=== PATIENT | female | born 1940 | race Two or more races ===

== ENCOUNTER 2016-04-28 21:50 | Inpatient (IN) | payer MEDICARE ==
[~2016-04-28] VITALS: Ht 154.9 cm; Wt 63.0 kg
[2016-04-28 23:00] VITALS: BP 145/81
[2016-04-28] MEDS ORDERED: MAG HYDROX/AL HYDROX/SIMETH 30 ML UDC PO PRN (23:30)
[2016-04-28] MEDS ORDERED: LORAZEPAM 0.5 MG TABLET PO PRN (23:30)
[2016-04-28] MEDS ORDERED: ACETAMINOPHEN 325 MG TABLET PO PRN (23:30)
[2016-04-28] MEDS ORDERED: MAGNESIUM HYDROXIDE 30 ML UDC PO PRN (23:30)
[2016-04-29] MEDS ORDERED: IBUP-1481 PO (00:01)
[2016-04-29 07:25] LABS: ALBUMIN 3.6 g/dL (3.4-5.0); BILIRUBIN,TOTAL 0.6 mg/dL (0.2-1.0); CALCIUM, SERUM 9.2 mg/dL (8.5-10.1); CREATININE 0.8 mg/dL (0.6-1.3); POTASSIUM 4.2 mmol/L (3.5-5.1); TOTAL PROTEIN, SERUM 6.9 g/dL (6.4-8.2)
[2016-04-29 08:00] VITALS: BP 137/80
[2016-04-29 16:12] VITALS: BP 121/71
[2016-04-29 18:34] LABS: KETONES,URINE NEGATIVE (NEGATIVE); LEUKOCYTE ESTERASE ,URINE TRACE (NEGATIVE); PH,URINE 5.5 (5.0-8.0)
[2016-04-29 19:12] LABS: ADD UA MICROSCOPIC YES
[2016-04-29 19:14] LABS: ADD URINE CULTURE NO; RBC,URINE NONE SEEN /HPF (0-2); WBC,URINE 0-2 /HPF (0-3)
[2016-04-29 20:01] VITALS: BP 163/83
[2016-04-29 20:31] VITALS: BP 139/71
[2016-04-29] MEDS: DIVALPROEX SODIUM 250 MG TABLET.DR PO SCH (20:49)
[2016-04-29] MEDS: OLANZAPINE 5 MG/TAB.RAPDIS PO SCH (21:11)
[2016-04-29] MEDS: TEMAZEPAM 7.5 MG CAPSULE PO PRN (21:41)
[2016-04-30 08:00] VITALS: BP 143/84
[2016-04-30] MEDS: DIVALPROEX SODIUM 250 MG TABLET.DR PO SCH ×3 (09:28→21:40)
[2016-04-30 16:00] VITALS: BP 139/85
[2016-04-30 20:11] VITALS: BP 154/87
[2016-04-30] MEDS: OLANZAPINE 5 MG/TAB.RAPDIS PO SCH (21:40)
[2016-05-01 08:00] VITALS: BP 144/87
[2016-05-01] MEDS: DIVALPROEX SODIUM 250 MG TABLET.DR PO SCH ×3 (09:28→20:10)
[2016-05-01 16:00] VITALS: BP 142/73
[2016-05-01 20:07] VITALS: BP 138/58
[2016-05-01] MEDS: OLANZAPINE 5 MG/TAB.RAPDIS PO SCH (21:06)
[2016-05-02 08:00] VITALS: BP 141/73
[2016-05-02] MEDS: DIVALPROEX SODIUM 250 MG TABLET.DR PO SCH ×3 (08:52→21:00)
[2016-05-02 16:00] VITALS: BP 148/80
[2016-05-02 20:00] VITALS: BP 136/73
[2016-05-02] MEDS: NITROFURANTOIN/NITROFURAN MAC 100 MG CAPSULE PO SCH (21:00)
[2016-05-02] MEDS: OLANZAPINE 5 MG/TAB.RAPDIS PO SCH (22:07)
[2016-05-02] MEDS: TEMAZEPAM 7.5 MG CAPSULE PO PRN (22:08)
[2016-05-03 08:00] VITALS: BP 147/85
[2016-05-03] MEDS: NITROFURANTOIN/NITROFURAN MAC 100 MG CAPSULE PO SCH ×2 (09:08→20:22)
[2016-05-03] MEDS: DIVALPROEX SODIUM 250 MG TABLET.DR PO SCH ×4 (09:08→21:16)
[2016-05-03 16:00] VITALS: BP 142/89
[2016-05-03 20:00] VITALS: BP 145/87
[2016-05-03] MEDS: OLANZAPINE 5 MG/TAB.RAPDIS PO SCH (22:07)
[2016-05-04 07:32] LABS: CHOLESTEROL 144 mg/dL (<200); HDL CHOLESTEROL 41 mg/dL (40-60); LDL 84 mg/dL (0-99); TRIGLYCERIDES 94 mg/dL (30-150)
[2016-05-04] MEDS: DIVALPROEX SODIUM 250 MG TABLET.DR PO SCH ×3 (08:29→20:03)
[2016-05-04] MEDS: NITROFURANTOIN/NITROFURAN MAC 100 MG CAPSULE PO SCH (08:29)
[2016-05-04 08:59] VITALS: BP 140/85
[2016-05-04 15:42] VITALS: BP 142/84
[2016-05-04 20:00] VITALS: BP 129/71
[2016-05-04] MEDS: OLANZAPINE 5 MG/TAB.RAPDIS PO SCH (21:06)
[2016-05-05 08:00] VITALS: BP 150/89
[2016-05-05] MEDS: DIVALPROEX SODIUM 250 MG TABLET.DR PO SCH ×3 (09:00→21:21)
[2016-05-05 16:24] VITALS: BP 131/75
[2016-05-05 20:00] VITALS: BP 131/68
[2016-05-05] MEDS ORDERED: OLANZAPINE 5 MG/TAB.RAPDIS PO SCH (22:00)
[2016-05-06 08:00] VITALS: BP 140/89
[2016-05-06] MEDS: DIVALPROEX SODIUM 250 MG TABLET.DR PO SCH (08:20)
== END 2016-05-06 13:50 | DRG 885 ==
LOC: GPS 22:36
PROVIDERS: ADMIT Psychiatry & Neurology Psychiatry; ATTEND Internal Medicine
DX: F20.0 Paranoid schizophrenia (principal); N39.0 Urinary tract infection, site not specified; M19.90 Unspecified osteoarthritis, unspecified site; F03.90 Unspecified dementia, unspecified severity, without behavioral disturbance, psychotic disturbance, mood disturbance, and anxiety; F10.21 Alcohol dependence, in remission
CPT/HCPCS: 36415; 80053-TC; 80061-TC; 80164-TC; 81000-TC; 87081-TC

== ENCOUNTER 2017-08-08 18:06 | Inpatient (IN) | payer MEDICARE, OTHER ==
[~2017-08-08] VITALS: Ht 157.5 cm; Wt 85.7 kg
[~2017-08-08 18:06] MED LIST: IBUP-1953 PO
[2017-08-08 18:53] LABS: BASOPHILS % (AUTO) 0.6 % (0.0-2.0); EOSINOPHILS % (AUTO) 1.1 % (0.0-6.0); HEMATOCRIT 39 % (33-45); HEMOGLOBIN 13.2 g/dL (11.5-14.8); LYMPHOCYTES # (AUTO) 1.5 /CMM (0.8-4.8); LYMPHOCYTES % (AUTO) 26.2 % (20.0-44.0); MEAN CORPUSCULAR HEMOGLOBIN 32 PG (26.0-33.0); MEAN CORPUSCULAR HGB CONC 34 g/dl (31.0-36.0); MEAN CORPUSCULAR VOLUME 93 fL (82-100); MONOCYTES # (AUTO) 0.5 /CMM (0.1-1.30); MONOCYTES % (AUTO) 9.1 % (2.0-12.0); NEUTROPHILS # (AUTO) 3.5 /CMM (1.8-8.9); PLATELET COUNT (AUTO) 170 /CMM (150-450); RDW COEFFICIENT OF VARIATION 13.6 (11.5-15.0); RED BLOOD CELL COUNT(AUTO) 4.17 MIL/uL (4.0-5.2); WHITE BLOOD COUNT (AUTO) 5.6 K/uL (4.3-11.0)
[2017-08-08 19:09] LABS: CALCIUM, SERUM 8.6 mg/dL (8.5-10.1); CARBON DIOXIDE 29 mmol/L (21-32); CHLORIDE 102 mmol/L (98-107); GLUCOSE 132 mg/dL (74-106); POTASSIUM 4.3 mmol/L (3.5-5.1); SODIUM SERUM 139 mmol/L (136-145); UREA NITROGEN, BLOOD 19 mg/dL (7-18)
[2017-08-08 19:17] LABS: TROPONIN I < 0.017 ng/mL (0.00-0.056)
[2017-08-08 19:26] LABS: INR 0.96 (0.87-1.13)
[2017-08-08 20:24] LABS: B-TYPE NATRIURETIC PEPTIDE 442 PG/ML (0-125)
[2017-08-08] MEDS ORDERED: MAGNESIUM HYDROXIDE 30 ML UDC PO PRN (21:00)
[2017-08-08] MEDS ORDERED: ACETAMINOPHEN 325 MG TABLET PO PRN (21:00)
[2017-08-08] MEDS ORDERED: HYDROCODONE/APAP 5/325MG 1 EACH TABLET PO PRN (21:00)
[2017-08-08] MEDS ORDERED: ONDANSETRON HCL/PF 4 MG/2 ML VIAL IVP PRN (21:00)
[2017-08-08] MEDS ORDERED: ZOLPIDEM TARTRATE 5 MG TABLET PO PRN (21:00)
[2017-08-08] MEDS ORDERED: Z GUARD REMEDY 2 OZ OINT TP PRN (21:00)
[2017-08-08] MEDS ORDERED: MAG HYDROX/AL HYDROX/SIMETH 30 ML UDC PO PRN (21:00)
[2017-08-08] MEDS ORDERED: FUROSEMIDE 40 MG/4 ML VIAL IV ONE (21:00)
[2017-08-08] MEDS ORDERED: METO-356 PO (21:03)
[2017-08-08] MEDS ORDERED: ACET-868 PO (21:03)
[2017-08-08] MEDS ORDERED: DOCU-141 PO (21:03)
[2017-08-08] MEDS ORDERED: MAGN400O21 PO (21:03)
[2017-08-08] MEDS ORDERED: DICL100G16 TP (21:03)
[2017-08-08] MEDS ORDERED: OLAN5TAB3 PO (21:03)
[2017-08-08] MEDS ORDERED: DIVA500T2 PO (21:03)
[2017-08-08] MEDS ORDERED: FUROSEMIDE 40 MG/4 ML VIAL ONE (21:05)
[2017-08-08 22:25] VITALS: BP 155/77
[2017-08-08 22:30] VITALS: BP 155/77
[2017-08-08] MEDS: ENOXAPARIN SODIUM 40 MG/0.4 ML DISP.SYRIN SQ SCH (23:53)
[2017-08-09 08:00] VITALS: BP 136/79
[2017-08-09] MEDS: FUROSEMIDE 40 MG/4 ML VIAL IV SCH ×2 (08:57→21:46)
[2017-08-09] MEDS ORDERED: ACETAMINOPHEN 325 MG TABLET PO PRN (10:00)
[2017-08-09] MEDS ORDERED: MAGNESIUM HYDROXIDE 30 ML UDC PO PRN (10:00)
[2017-08-09] MEDS: DOCUSATE SODIUM 100 MG CAPSULE PO SCH ×2 (10:00→17:14)
[2017-08-09] MEDS: METOPROLOL SUCCINATE 25 MG TAB.SR.24H PO SCH ×2 (10:01→23:08)
[2017-08-09] MEDS: MELOXICAM 7.5 MG TABLET PO SCH (10:01)
[2017-08-09] MEDS: DIVALPROEX SODIUM 250 MG TABLET.DR PO SCH ×3 (10:03→17:14)
[2017-08-09 11:10] LABS: BASOPHILS % (AUTO) 0.5 % (0.0-2.0); EOSINOPHILS % (AUTO) 0.8 % (0.0-6.0); HEMATOCRIT 38 % (33-45); HEMOGLOBIN 13.1 g/dL (11.5-14.8); LYMPHOCYTES # (AUTO) 1.1 /CMM (0.8-4.8); LYMPHOCYTES % (AUTO) 25.4 % (20.0-44.0); MEAN CORPUSCULAR HEMOGLOBIN 32 PG (26.0-33.0); MEAN CORPUSCULAR HGB CONC 34 g/dl (31.0-36.0); MEAN CORPUSCULAR VOLUME 93 fL (82-100); MONOCYTES # (AUTO) 0.3 /CMM (0.1-1.30); MONOCYTES % (AUTO) 7.6 % (2.0-12.0); NEUTROPHILS # (AUTO) 2.9 /CMM (1.8-8.9); NEUTROPHILS % (AUTO) 65.7 % (43.0-81.0); PLATELET COUNT (AUTO) 160 /CMM (150-450); RDW COEFFICIENT OF VARIATION 13.6 (11.5-15.0); WHITE BLOOD COUNT (AUTO) 4.5 K/uL (4.3-11.0)
[2017-08-09 11:28] LABS: CALCIUM, SERUM 8.8 mg/dL (8.5-10.1); CARBON DIOXIDE 32 mmol/L (21-32); CHLORIDE 102 mmol/L (98-107); CREATININE 0.9 mg/dL (0.6-1.3); GLUCOSE 206 mg/dL (74-106); MAGNESIUM 2.2 mg/dL (1.8-2.4); POTASSIUM 3.4 mmol/L (3.5-5.1); SODIUM SERUM 139 mmol/L (136-145); UREA NITROGEN, BLOOD 18 mg/dL (7-18)
[2017-08-09 11:40] LABS: CHOLESTEROL 182 mg/dL (<200); HDL CHOLESTEROL 40 mg/dL (40-60); LDL 115 mg/dL (0-99); THYROID STIMULATING HORMONE 6.263 uIU/mL (0.358-3.74); TRIGLYCERIDES 168 mg/dL (30-150)
[2017-08-09] MEDS ORDERED: POTASSIUM CHLORIDE 20 MEQ TAB.PRT.SR PO SCH (12:00)
[2017-08-09 16:00] VITALS: BP 131/73
[2017-08-09] MEDS: OLANZAPINE 5 MG TABLET PO SCH (17:14)
[2017-08-09] MEDS: BLOOD SUGAR DIAGNOSTIC 1 EACH STRIP IN SCH ×2 (17:53→21:51)
[2017-08-09] MEDS ORDERED: DEXTROSE 50%-WATER 50 ML DISP.SYRIN IV PRN (18:00)
[2017-08-09 20:00] VITALS: BP 130/72
[2017-08-09] MEDS: ENOXAPARIN SODIUM 40 MG/0.4 ML DISP.SYRIN SQ SCH (21:51)
[2017-08-09] MEDS: INSULIN REGULAR, HUMAN 100 UNIT/ML 3 ML VIAL SQ PRN (21:52)
[2017-08-10] MEDS: BLOOD SUGAR DIAGNOSTIC 1 EACH STRIP IN SCH ×4 (06:31→21:50)
[2017-08-10] MEDS: FUROSEMIDE 40 MG/4 ML VIAL IV SCH (08:15)
[2017-08-10] MEDS: DOCUSATE SODIUM 100 MG CAPSULE PO SCH ×2 (08:15→17:36)
[2017-08-10] MEDS: DIVALPROEX SODIUM 250 MG TABLET.DR PO SCH ×3 (08:15→17:36)
[2017-08-10] MEDS: MELOXICAM 7.5 MG TABLET PO SCH (08:15)
[2017-08-10] MEDS: METOPROLOL SUCCINATE 25 MG TAB.SR.24H PO SCH ×2 (08:15→21:49)
[2017-08-10 08:44] VITALS: BP 121/71
[2017-08-10 09:08] LABS: BASOPHILS # (AUTO) 0.1 /CMM (0.0-0.2); EOSINOPHILS % (AUTO) 1.6 % (0.0-6.0); HEMATOCRIT 42 % (33-45); HEMOGLOBIN 14.3 g/dL (11.5-14.8); LYMPHOCYTES # (AUTO) 1.5 /CMM (0.8-4.8); LYMPHOCYTES % (AUTO) 27.7 % (20.0-44.0); MEAN CORPUSCULAR HEMOGLOBIN 32 PG (26.0-33.0); MEAN CORPUSCULAR HGB CONC 34 g/dl (31.0-36.0); MEAN CORPUSCULAR VOLUME 93 fL (82-100); MONOCYTES # (AUTO) 0.3 /CMM (0.1-1.30); MONOCYTES % (AUTO) 6.1 % (2.0-12.0); NEUTROPHILS # (AUTO) 3.4 /CMM (1.8-8.9); NEUTROPHILS % (AUTO) 63.6 % (43.0-81.0); PLATELET COUNT (AUTO) 145 /CMM (150-450); RDW COEFFICIENT OF VARIATION 13.3 (11.5-15.0); RED BLOOD CELL COUNT(AUTO) 4.47 MIL/uL (4.0-5.2); WHITE BLOOD COUNT (AUTO) 5.3 K/uL (4.3-11.0)
[2017-08-10 09:49] LABS: CALCIUM, SERUM 8.9 mg/dL (8.5-10.1); CREATININE 0.9 mg/dL (0.6-1.3); GLUCOSE 160 mg/dL (74-106); UREA NITROGEN, BLOOD 26 mg/dL (7-18)
[2017-08-10 10:07] LABS: CARBON DIOXIDE 27 mmol/L (21-32); CHLORIDE 99 mmol/L (98-107); POTASSIUM 3.6 mmol/L (3.5-5.1); SODIUM SERUM 137 mmol/L (136-145)
[2017-08-10] MEDS: INSULIN REGULAR, HUMAN 100 UNIT/ML 3 ML VIAL SQ PRN ×3 (12:17→21:57)
[2017-08-10 15:48] VITALS: BP 119/65
[2017-08-10] MEDS: OLANZAPINE 5 MG TABLET PO SCH (17:36)
[2017-08-10 20:00] VITALS: BP 119/68
[2017-08-10] MEDS: ENOXAPARIN SODIUM 40 MG/0.4 ML DISP.SYRIN SQ SCH (21:50)
[2017-08-11] MEDS: INSULIN REGULAR, HUMAN 100 UNIT/ML 3 ML VIAL SQ PRN ×2 (06:49→21:41)
[2017-08-11] MEDS: BLOOD SUGAR DIAGNOSTIC 1 EACH STRIP IN SCH ×4 (06:49→21:42)
[2017-08-11 07:52] VITALS: BP 124/62
[2017-08-11 08:00] VITALS: BP 124/62
[2017-08-11] MEDS: DOCUSATE SODIUM 100 MG CAPSULE PO SCH ×2 (08:58→17:00)
[2017-08-11] MEDS: METOPROLOL SUCCINATE 25 MG TAB.SR.24H PO SCH ×2 (08:58→20:43)
[2017-08-11] MEDS: MELOXICAM 7.5 MG TABLET PO SCH (08:59)
[2017-08-11] MEDS: DIVALPROEX SODIUM 250 MG TABLET.DR PO SCH ×3 (08:59→17:00)
[2017-08-11 16:00] VITALS: BP 140/75
[2017-08-11] MEDS: OLANZAPINE 5 MG TABLET PO SCH (17:01)
[2017-08-11 18:06] LABS: BASOPHILS % (AUTO) 0.5 % (0.0-2.0); EOSINOPHILS % (AUTO) 2.1 % (0.0-6.0); HEMATOCRIT 38 % (33-45); HEMOGLOBIN 12.9 g/dL (11.5-14.8); LYMPHOCYTES # (AUTO) 1.8 /CMM (0.8-4.8); LYMPHOCYTES % (AUTO) 32.2 % (20.0-44.0); MEAN CORPUSCULAR HEMOGLOBIN 32 PG (26.0-33.0); MEAN CORPUSCULAR HGB CONC 34 g/dl (31.0-36.0); MEAN CORPUSCULAR VOLUME 93 fL (82-100); MONOCYTES # (AUTO) 0.6 /CMM (0.1-1.30); MONOCYTES % (AUTO) 9.9 % (2.0-12.0); NEUTROPHILS # (AUTO) 3.1 /CMM (1.8-8.9); NEUTROPHILS % (AUTO) 55.3 % (43.0-81.0); PLATELET COUNT (AUTO) 155 /CMM (150-450); RDW COEFFICIENT OF VARIATION 13.2 (11.5-15.0); RED BLOOD CELL COUNT(AUTO) 4.03 MIL/uL (4.0-5.2); WHITE BLOOD COUNT (AUTO) 5.6 K/uL (4.3-11.0)
[2017-08-11 18:16] LABS: CALCIUM, SERUM 8.7 mg/dL (8.5-10.1); CARBON DIOXIDE 31 mmol/L (21-32); CHLORIDE 104 mmol/L (98-107); CREATININE 0.8 mg/dL (0.6-1.3); GLUCOSE 96 mg/dL (74-106); POTASSIUM 4.2 mmol/L (3.5-5.1); SODIUM SERUM 140 mmol/L (136-145); UREA NITROGEN, BLOOD 32 mg/dL (7-18)
[2017-08-11 20:00] VITALS: BP 142/68
[2017-08-11] MEDS: ENOXAPARIN SODIUM 40 MG/0.4 ML DISP.SYRIN SQ SCH (20:45)
[2017-08-12 06:18] LABS: BASOPHILS % (AUTO) 0.3 % (0.0-2.0); EOSINOPHILS % (AUTO) 2.2 % (0.0-6.0); HEMATOCRIT 38 % (33-45); HEMOGLOBIN 13.1 g/dL (11.5-14.8); LYMPHOCYTES # (AUTO) 1.7 /CMM (0.8-4.8); LYMPHOCYTES % (AUTO) 28.4 % (20.0-44.0); MEAN CORPUSCULAR HEMOGLOBIN 32 PG (26.0-33.0); MEAN CORPUSCULAR HGB CONC 35 g/dl (31.0-36.0); MEAN CORPUSCULAR VOLUME 93 fL (82-100); MONOCYTES # (AUTO) 0.5 /CMM (0.1-1.30); MONOCYTES % (AUTO) 7.5 % (2.0-12.0); NEUTROPHILS # (AUTO) 3.8 /CMM (1.8-8.9); NEUTROPHILS % (AUTO) 61.6 % (43.0-81.0); PLATELET COUNT (AUTO) 157 /CMM (150-450); RDW COEFFICIENT OF VARIATION 12.9 (11.5-15.0); RED BLOOD CELL COUNT(AUTO) 4.07 MIL/uL (4.0-5.2); WHITE BLOOD COUNT (AUTO) 6.1 K/uL (4.3-11.0)
[2017-08-12] MEDS: BLOOD SUGAR DIAGNOSTIC 1 EACH STRIP IN SCH ×2 (06:30→13:36)
[2017-08-12 06:31] LABS: CALCIUM, SERUM 8.6 mg/dL (8.5-10.1); CARBON DIOXIDE 30 mmol/L (21-32); CHLORIDE 105 mmol/L (98-107); CREATININE 0.7 mg/dL (0.6-1.3); GLUCOSE 96 mg/dL (74-106); POTASSIUM 4.3 mmol/L (3.5-5.1); SODIUM SERUM 141 mmol/L (136-145); UREA NITROGEN, BLOOD 29 mg/dL (7-18)
[2017-08-12 08:00] VITALS: BP 120/71
[2017-08-12] MEDS ORDERED: FUROSEMIDE 40 MG/4 ML VIAL IV SCH (09:00)
[2017-08-12] MEDS: DIVALPROEX SODIUM 250 MG TABLET.DR PO SCH ×2 (10:01→13:36)
[2017-08-12] MEDS: MELOXICAM 7.5 MG TABLET PO SCH (10:01)
[2017-08-12] MEDS: DOCUSATE SODIUM 100 MG CAPSULE PO SCH (10:01)
[2017-08-12 10:04] VITALS: BP 120/71
[2017-08-12] MEDS: METOPROLOL SUCCINATE 25 MG TAB.SR.24H PO SCH (10:04)
== END 2017-08-12 15:34 | DRG 293 ==
LOC: ER 18:07 → MED 22:04
PROVIDERS: ADMIT Legal Medicine; ATTEND Legal Medicine
DX: I11.0 Hypertensive heart disease with heart failure (principal); E11.9 Type 2 diabetes mellitus without complications; E66.01 Morbid (severe) obesity due to excess calories; F03.90 Unspecified dementia, unspecified severity, without behavioral disturbance, psychotic disturbance, mood disturbance, and anxiety; E03.9 Hypothyroidism, unspecified; Z68.34 Body mass index [BMI] 34.0-34.9, adult; I50.33 Acute on chronic diastolic (congestive) heart failure
CPT/HCPCS: 36415; 71045-TC; 80048-TC; 80061-TC; 82962-TC; 83735-TC; 83880; 84100-TC; 84443-TC; 84484-TC; 85025-TC; 85378-TC; 85730-TC; 93307-TC; 94799-TC; A4606; J1650; J1815; J1940; Z7610

== ENCOUNTER 2018-03-21 15:45 | Emergency (ER) | payer MEDICARE, OTHER ==
[~2018-03-21] VITALS: Ht 157.5 cm; Wt 81.6 kg
[~2018-03-21 15:45] MED LIST changes: +ACET-868 PO; +DICL100G16 TP; +DIVA500T2 PO; +DOCU-141 PO; +MAGN400O21 PO; +METO-356 PO; +OLAN5TAB3 PO
[2018-03-21] MEDS ORDERED: POTA20TA83 PO (16:16)
[2018-03-21] MEDS ORDERED: METF500T7 PO (16:16)
[2018-03-21] MEDS ORDERED: DIVA-76 PO (16:16)
[2018-03-21] MEDS ORDERED: HYDR28.32 TP (16:16)
[2018-03-21] MEDS ORDERED: MELO-105 PO (16:16)
--- NOTE | 2018-03-21 16:39 | NUR ---
[facility] #[id number]. ETA 60-20
[2018-03-21 17:51] VITALS: BP 130/60
--- NOTE | 2018-03-21 17:53 | NUR ---
For discharge-ACI instructions given to transporting personnel [facility] report to [facility]. Accepted back to Sameer Mcdaniels at [place] by
== END 2018-03-21 17:52 ==
LOC: ER 15:52
DX: R21 Rash and other nonspecific skin eruption (principal); I10 Essential (primary) hypertension; M54.9 Dorsalgia, unspecified
CPT/HCPCS: A4606; Z7610

== ENCOUNTER 2018-10-10 15:42 | Inpatient (IN) | payer MEDICARE, MEDICAID ==
[~2018-10-10] VITALS: Ht 154.9 cm; Wt 79.8 kg
[~2018-10-10 15:42] MED LIST changes: -ACET-868 PO; -DICL100G16 TP; +DIVA-76 PO; -DIVA500T2 PO; -DOCU-141 PO; +HYDR28.32 TP; -IBUP-1953 PO; -MAGN400O21 PO; +MELO-105 PO; +METF500T7 PO; +POTA20TA83 PO
[2018-10-10] MEDS ORDERED: ACETAMINOPHEN ES 500 MG TABLET PO ONE (16:00)
[2018-10-10] MEDS ORDERED: IV NS 0.9% 1,000 ML BAG IV ONE ×2 (16:00→16:30)
[2018-10-10 16:07] LABS: BASOPHILS % (AUTO) 0.6 % (0.0-2.0); EOSINOPHILS % (AUTO) 0.6 % (0.0-6.0); HEMATOCRIT 35 % (33-45); HEMOGLOBIN 11.9 g/dL (11.5-14.8); LYMPHOCYTES # (AUTO) 0.3 /CMM (0.8-4.8); LYMPHOCYTES % (AUTO) 5.9 % (20.0-44.0); MEAN CORPUSCULAR HGB CONC 35 g/dl (31.0-36.0); MEAN CORPUSCULAR VOLUME 96 fL (82-100); MONOCYTES # (AUTO) 0.5 /CMM (0.1-1.30); MONOCYTES % (AUTO) 9.7 % (2.0-12.0); NEUTROPHILS # (AUTO) 3.9 /CMM (1.8-8.9); NEUTROPHILS % (AUTO) 83.2 % (43.0-81.0); PLATELET COUNT (AUTO) 107 /CMM (150-450); WHITE BLOOD COUNT (AUTO) 4.7 K/uL (4.3-11.0)
[2018-10-10 16:18] LABS: CALCIUM, SERUM 8.9 mg/dL (8.5-10.1); CARBON DIOXIDE 27 mmol/L (21-32); CHLORIDE 96 mmol/L (98-107); CREATININE 2.2 mg/dL (0.6-1.3); GLUCOSE 188 mg/dL (74-106); POTASSIUM 3.7 mmol/L (3.5-5.1); SODIUM SERUM 137 mmol/L (136-145); UREA NITROGEN, BLOOD 32 mg/dL (7-18)
[2018-10-10 16:33] LABS: ALANINE AMINOTRANSFERASE 25 U/L (12-78); ALBUMIN 3.2 g/dL (3.4-5.0); ALKALINE PHOSPHATASE 56 U/L (46-116); ASPARTATE AMINOTRANSFERASE 23 U/L (15-37); BILIRUBIN,DIRECT 0.2 mg/dL (0.0-0.2); BILIRUBIN,TOTAL 0.6 mg/dL (0.2-1.0); LIPASE 61 U/L (73-393)
[2018-10-10] MEDS ORDERED: ACETAMINOPHEN ES 500 MG TABLET ONE (16:50)
[2018-10-10] MEDS ORDERED: IV NS 0.9% 500 ML BAG IV ONE (17:30)
[2018-10-10] MEDS ORDERED: PIPERACILLIN /TAZOBACTAM 3.375 G in IV D5W 50 ML IV ONE (17:30)
[2018-10-10] MEDS ORDERED: GENT5DRO4 OP (17:40)
[2018-10-10] MEDS ORDERED: METO2.5T2 PO (17:40)
[2018-10-10] MEDS ORDERED: FURO-144 PO (17:40)
[2018-10-10] MEDS ORDERED: HYDR10SY16 PO (17:40)
[2018-10-10] MEDS ORDERED: METF-440 PO (17:40)
[2018-10-10] MEDS ORDERED: PIPERACILLIN /TAZOBACTAM 3.375 G VIAL IV ONE (17:55)
[2018-10-10 18:02] LABS: APPEARANCE,URINE Clear (CLEAR); BILIRUBIN,URINE Negative (NEGATIVE); BLOOD, URINE Negative Ery/uL (NEGATIVE); COLOR,URINE Yellow (YELLOW); KETONES,URINE Negative (NEGATIVE); LEUKOCYTE ESTERASE ,URINE Negative (NEGATIVE); NITRITE, URINE Negative (NEGATIVE); PROTEIN,URINE Negative (NEGATIVE); UGLUCOSE Negative (NEGATIVE); UROBILINOGEN,URINE 0.2 EU/dL (0.2)
[2018-10-10 20:06] VITALS: BP 141/63
[2018-10-11] VITALS: BP 114/71
[2018-10-11] MEDS ORDERED: MORPHINE SULFATE INJ 2 MG/ML DISP.SYRIN IV PRN (02:00)
[2018-10-11] MEDS ORDERED: PIPERACILLIN /TAZOBACTAM 3.375 G VIAL IV ONE (02:00)
[2018-10-11] MEDS ORDERED: Z GUARD REMEDY 2 OZ OINT TP PRN (02:00)
[2018-10-11] MEDS ORDERED: ACETAMINOPHEN 325 MG TABLET PO PRN (02:00)
[2018-10-11] MEDS: PIPERACILLIN /TAZOBACTAM 2.25 G in IV D5W 50 ML IV SCH ×2 (02:00→06:31)
[2018-10-11] MEDS ORDERED: ONDANSETRON HCL/PF 4 MG/2 ML VIAL IVP PRN (02:00)
[2018-10-11] MEDS ORDERED: PIPERACILLIN /TAZOBACTAM 2.25 G VIAL IV ONE ×2 (02:05→05:14)
[2018-10-11] MEDS ORDERED: IV PREMIX 0.45% NS + KCL 1,000 ML IV ONE (02:13)
[2018-10-11] MEDS ORDERED: VANCOMYCIN 1.75 GM in IV NS 0.9% 500 ML IV ONE (02:30)
[2018-10-11] MEDS ORDERED: VANCOMYCIN 1 GM VIAL ONE (03:00)
[2018-10-11 04:00] VITALS: BP 121/68
[2018-10-11 07:26] LABS: BASOPHILS % (AUTO) 0.3 % (0.0-2.0); EOSINOPHILS % (AUTO) 1.3 % (0.0-6.0); HEMATOCRIT 33 % (33-45); HEMOGLOBIN 11.1 g/dL (11.5-14.8); LYMPHOCYTES # (AUTO) 0.8 /CMM (0.8-4.8); LYMPHOCYTES % (AUTO) 24.2 % (20.0-44.0); MEAN CORPUSCULAR HGB CONC 34 g/dl (31.0-36.0); MEAN CORPUSCULAR VOLUME 96 fL (82-100); MONOCYTES # (AUTO) 0.3 /CMM (0.1-1.30); MONOCYTES % (AUTO) 10.7 % (2.0-12.0); NEUTROPHILS % (AUTO) 63.5 % (43.0-81.0); PLATELET COUNT (AUTO) 94 /CMM (150-450); RED BLOOD CELL COUNT(AUTO) 3.38 MIL/uL (4.0-5.2); WHITE BLOOD COUNT (AUTO) 3.2 K/uL (4.3-11.0)
[2018-10-11] MEDS ORDERED: DEXTROSE 50%-WATER 50 ML DISP.SYRIN IV PRN (07:30)
[2018-10-11] MEDS ORDERED: FEE PK DOSING 1 MIN EA MC ONE (07:37)
[2018-10-11 08:00] VITALS: BP 135/71
[2018-10-11 08:07] LABS: ALANINE AMINOTRANSFERASE 16 U/L (12-78); ALBUMIN 2.7 g/dL (3.4-5.0); ALKALINE PHOSPHATASE 46 U/L (46-116); ASPARTATE AMINOTRANSFERASE 24 U/L (15-37); B-TYPE NATRIURETIC PEPTIDE 3121 PG/ML (0-125); BILIRUBIN,TOTAL 0.4 mg/dL (0.2-1.0); CALCIUM, SERUM 7.8 mg/dL (8.5-10.1); CARBON DIOXIDE 29 mmol/L (21-32); CHLORIDE 101 mmol/L (98-107); CREATININE 1.8 mg/dL (0.6-1.3); GLUCOSE 147 mg/dL (74-106); MAGNESIUM 1.8 mg/dL (1.8-2.4); SODIUM SERUM 139 mmol/L (136-145); TOTAL PROTEIN, SERUM 6.1 g/dL (6.4-8.2); UREA NITROGEN, BLOOD 22 mg/dL (7-18)
[2018-10-11 08:12] LABS: BAND % (MANUAL) 11 % (0.0-5.0); EOSINOPHILS % (MANUAL) 2 % (0-4); LYMPHOCYTES % (MANUAL) 27 % (16-48); MONOCYTES % (MANUAL) 12 % (0-11.0); NEUTROPHILS % (MANUAL) 48 (42-76)
[2018-10-11 08:36] LABS: CHOLESTEROL 148 mg/dL (<200); HDL CHOLESTEROL 37 mg/dL (40-60); LDL 88 mg/dL (0-99); TRIGLYCERIDES 111 mg/dL (30-150)
[2018-10-11] MEDS: METOPROLOL SUCCINATE 25 MG TAB.SR.24H PO SCH ×2 (08:56→22:06)
[2018-10-11] MEDS: PANTOPRAZOLE 40 MG TABLET.DR PO SCH (08:56)
[2018-10-11] MEDS: DIVALPROEX SODIUM 250 MG TABLET.DR PO SCH ×3 (08:56→17:29)
[2018-10-11] MEDS: BLOOD SUGAR DIAGNOSTIC 1 EACH STRIP IN SCH ×4 (08:56→22:06)
[2018-10-11] MEDS: INSULIN REGULAR, HUMAN 100 UNIT/ML 3 ML VIAL SQ PRN ×3 (09:25→22:17)
[2018-10-11 12:00] VITALS: BP 122/60
[2018-10-11] MEDS: PIPERACILLIN /TAZOBACTAM 3.375 G in IV D5W 100 ML IV SCH (12:48)
[2018-10-11 16:00] VITALS: BP 137/82
[2018-10-11] MEDS: OLANZAPINE 5 MG TABLET PO SCH (17:30)
[2018-10-11 20:00] VITALS: BP_SYST 145; BP_SYST 92; BP_DIAS 54; BP_DIAS 84
[2018-10-12] MEDS: PIPERACILLIN /TAZOBACTAM 3.375 G in IV D5W 100 ML IV SCH ×2 (01:13→12:46)
[2018-10-12 04:00] VITALS: BP 149/89
[2018-10-12] MEDS: BLOOD SUGAR DIAGNOSTIC 1 EACH STRIP IN SCH ×4 (06:00→21:33)
[2018-10-12] MEDS ORDERED: VANCOMYCIN 1 GM in IV D5W 250 ML IV SCH (06:00)
[2018-10-12] MEDS: PANTOPRAZOLE 40 MG TABLET.DR PO SCH (06:34)
[2018-10-12 07:16] LABS: BASOPHILS % (AUTO) 0.3 % (0.0-2.0); EOSINOPHILS % (AUTO) 3.7 % (0.0-6.0); HEMATOCRIT 31 % (33-45); HEMOGLOBIN 10.7 g/dL (11.5-14.8); LYMPHOCYTES # (AUTO) 1.5 /CMM (0.8-4.8); LYMPHOCYTES % (AUTO) 37.4 % (20.0-44.0); MEAN CORPUSCULAR HGB CONC 34 g/dl (31.0-36.0); MEAN CORPUSCULAR VOLUME 97 fL (82-100); MONOCYTES # (AUTO) 0.6 /CMM (0.1-1.30); MONOCYTES % (AUTO) 14.5 % (2.0-12.0); NEUTROPHILS # (AUTO) 1.8 /CMM (1.8-8.9); NEUTROPHILS % (AUTO) 44.1 % (43.0-81.0); PLATELET COUNT (AUTO) 92 /CMM (150-450); RED BLOOD CELL COUNT(AUTO) 3.23 MIL/uL (4.0-5.2); WHITE BLOOD COUNT (AUTO) 4.1 K/uL (4.3-11.0)
[2018-10-12 07:31] LABS: CARBON DIOXIDE 29 mmol/L (21-32); CHLORIDE 104 mmol/L (98-107); CREATININE 1.3 mg/dL (0.6-1.3); GLUCOSE 79 mg/dL (74-106); PHOSPHORUS 3.1 mg/dL (2.5-4.9); POTASSIUM 3.8 mmol/L (3.5-5.1); SODIUM SERUM 139 mmol/L (136-145); UREA NITROGEN, BLOOD 15 mg/dL (7-18)
[2018-10-12 08:00] VITALS: BP 111/79
[2018-10-12] MEDS: DIVALPROEX SODIUM 250 MG TABLET.DR PO SCH ×3 (08:26→17:07)
[2018-10-12] MEDS: METOPROLOL SUCCINATE 25 MG TAB.SR.24H PO SCH ×2 (08:27→21:33)
[2018-10-12 09:00] VITALS: BP 111/79
[2018-10-12 16:00] VITALS: BP 113/62
[2018-10-12] MEDS: OLANZAPINE 5 MG TABLET PO SCH (17:07)
[2018-10-12 20:00] VITALS: BP 131/66
[2018-10-12] MEDS: INSULIN REGULAR, HUMAN 100 UNIT/ML 3 ML VIAL SQ PRN (21:33)
[2018-10-13] VITALS: BP 131/66
[2018-10-13 04:00] VITALS: BP 126/71
[2018-10-13 07:05] LABS: CALCIUM, SERUM 8.1 mg/dL (8.5-10.1); CARBON DIOXIDE 29 mmol/L (21-32); CHLORIDE 109 mmol/L (98-107); GLUCOSE 81 mg/dL (74-106); MAGNESIUM 2.3 mg/dL (1.8-2.4); POTASSIUM 4.7 mmol/L (3.5-5.1); SODIUM SERUM 143 mmol/L (136-145); UREA NITROGEN, BLOOD 12 mg/dL (7-18)
[2018-10-13] MEDS: BLOOD SUGAR DIAGNOSTIC 1 EACH STRIP IN SCH ×4 (07:35→22:08)
[2018-10-13] MEDS: PANTOPRAZOLE 40 MG TABLET.DR PO SCH (07:35)
[2018-10-13 08:00] VITALS: BP 123/82
[2018-10-13 08:13] LABS: BASOPHILS % (AUTO) 0.2 % (0.0-2.0); EOSINOPHILS % (AUTO) 3.4 % (0.0-6.0); HEMATOCRIT 33 % (33-45); LYMPHOCYTES # (AUTO) 1.3 /CMM (0.8-4.8); MEAN CORPUSCULAR HGB CONC 34 g/dl (31.0-36.0); MEAN CORPUSCULAR VOLUME 96 fL (82-100); MONOCYTES # (AUTO) 0.5 /CMM (0.1-1.30); MONOCYTES % (AUTO) 10.8 % (2.0-12.0); NEUTROPHILS # (AUTO) 2.3 /CMM (1.8-8.9); NEUTROPHILS % (AUTO) 55.6 % (43.0-81.0); PLATELET COUNT (AUTO) 102 /CMM (150-450); RED BLOOD CELL COUNT(AUTO) 3.38 MIL/uL (4.0-5.2); WHITE BLOOD COUNT (AUTO) 4.2 K/uL (4.3-11.0)
[2018-10-13] MEDS: DIVALPROEX SODIUM 250 MG TABLET.DR PO SCH ×3 (08:31→17:46)
[2018-10-13] MEDS: METOPROLOL SUCCINATE 25 MG TAB.SR.24H PO SCH ×2 (08:32→21:11)
[2018-10-13] MEDS: INSULIN REGULAR, HUMAN 100 UNIT/ML 3 ML VIAL SQ PRN (12:12)
[2018-10-13 16:00] VITALS: BP 120/75
[2018-10-13] MEDS: OLANZAPINE 5 MG TABLET PO SCH (17:46)
[2018-10-14] VITALS: BP 121/50
[2018-10-14 07:20] LABS: BASOPHILS % (AUTO) 0.5 % (0.0-2.0); EOSINOPHILS % (AUTO) 3.2 % (0.0-6.0); HEMATOCRIT 31 % (33-45); HEMOGLOBIN 10.5 g/dL (11.5-14.8); LYMPHOCYTES # (AUTO) 1.3 /CMM (0.8-4.8); LYMPHOCYTES % (AUTO) 37.4 % (20.0-44.0); MEAN CORPUSCULAR HGB CONC 34 g/dl (31.0-36.0); MEAN CORPUSCULAR VOLUME 96 fL (82-100); MONOCYTES # (AUTO) 0.4 /CMM (0.1-1.30); MONOCYTES % (AUTO) 11.4 % (2.0-12.0); NEUTROPHILS # (AUTO) 1.7 /CMM (1.8-8.9); NEUTROPHILS % (AUTO) 47.5 % (43.0-81.0); PLATELET COUNT (AUTO) 106 /CMM (150-450); RED BLOOD CELL COUNT(AUTO) 3.21 MIL/uL (4.0-5.2); WHITE BLOOD COUNT (AUTO) 3.6 K/uL (4.3-11.0)
[2018-10-14 07:45] LABS: CALCIUM, SERUM 8.4 mg/dL (8.5-10.1); CARBON DIOXIDE 28 mmol/L (21-32); CHLORIDE 111 mmol/L (98-107); CREATININE 1.1 mg/dL (0.6-1.3); GLUCOSE 81 mg/dL (74-106); MAGNESIUM 2.3 mg/dL (1.8-2.4); POTASSIUM 4.3 mmol/L (3.5-5.1); SODIUM SERUM 145 mmol/L (136-145); UREA NITROGEN, BLOOD 11 mg/dL (7-18)
[2018-10-14] MEDS: INSULIN REGULAR, HUMAN 100 UNIT/ML 3 ML VIAL SQ PRN ×3 (07:51→16:33)
[2018-10-14] MEDS: BLOOD SUGAR DIAGNOSTIC 1 EACH STRIP IN SCH ×4 (07:51→21:30)
[2018-10-14 07:53] VITALS: BP 132/74
[2018-10-14 08:00] VITALS: BP 132/74
[2018-10-14] MEDS: PANTOPRAZOLE 40 MG TABLET.DR PO SCH (08:15)
[2018-10-14] MEDS: DIVALPROEX SODIUM 250 MG TABLET.DR PO SCH ×3 (08:38→16:33)
[2018-10-14] MEDS: METOPROLOL SUCCINATE 25 MG TAB.SR.24H PO SCH ×2 (08:39→21:30)
[2018-10-14 16:00] VITALS: BP 132/65
[2018-10-14] MEDS: OLANZAPINE 5 MG TABLET PO SCH (16:33)
[2018-10-14 20:00] VITALS: BP 121/81
[2018-10-15] VITALS: BP 112/52
[2018-10-15 04:00] VITALS: BP 141/81
[2018-10-15 07:29] LABS: CALCIUM, SERUM 8.5 mg/dL (8.5-10.1); CARBON DIOXIDE 28 mmol/L (21-32); CHLORIDE 111 mmol/L (98-107); CREATININE 1.1 mg/dL (0.6-1.3); GLUCOSE 82 mg/dL (74-106); POTASSIUM 4.1 mmol/L (3.5-5.1); SODIUM SERUM 146 mmol/L (136-145); UREA NITROGEN, BLOOD 15 mg/dL (7-18)
[2018-10-15 08:00] VITALS: BP 142/62
[2018-10-15] MEDS: BLOOD SUGAR DIAGNOSTIC 1 EACH STRIP IN SCH ×2 (08:06→12:04)
[2018-10-15] MEDS: PANTOPRAZOLE 40 MG TABLET.DR PO SCH (08:30)
[2018-10-15 08:31] VITALS: BP 142/62
[2018-10-15] MEDS: DIVALPROEX SODIUM 250 MG TABLET.DR PO SCH ×2 (08:31→12:43)
[2018-10-15] MEDS: METOPROLOL SUCCINATE 25 MG TAB.SR.24H PO SCH (08:31)
== END 2018-10-15 16:35 | DRG 871 ==
LOC: ER 15:44 → TELE1 19:42 → MEDSG1 10-11 11:30
PROVIDERS: ADMIT Internal Medicine; ATTEND Legal Medicine
DX: A41.9 Sepsis, unspecified organism (principal); N17.0 Acute kidney failure with tubular necrosis; J15.9 Unspecified bacterial pneumonia; D68.59 Other primary thrombophilia; A04.9 Bacterial intestinal infection, unspecified; G93.40 Encephalopathy, unspecified; J98.11 Atelectasis; F03.91 Unspecified dementia, unspecified severity, with behavioral disturbance; E87.2 Acidosis; I13.0 Hypertensive heart and chronic kidney disease with heart failure and stage 1 through stage 4 chronic kidney disease, or unspecified chronic kidney disease; E03.9 Hypothyroidism, unspecified; E11.9 Type 2 diabetes mellitus without complications; E66.9 Obesity, unspecified; I50.9 Heart failure, unspecified; Z79.84 Long term (current) use of oral hypoglycemic drugs; G89.29 Other chronic pain; M41.86 Other forms of scoliosis, lumbar region; R65.20 Severe sepsis without septic shock; F29 Unspecified psychosis not due to a substance or known physiological condition; E86.0 Dehydration; K76.0 Fatty (change of) liver, not elsewhere classified
CPT/HCPCS: 36415; 71045-TC; 80048-TC; 80053-TC; 80061-TC; 80076-TC; 80164-TC; 81000-TC; 82962-TC; 83605-TC; 83690-TC; 83735-TC; 83880; 84100-TC; 84443-TC; 84484-TC; 85025-TC; 87040-TC; 87081-TC; 87086-TC; 97116-TC; 97530-TC; G0378; J1815; J2543; J3370; J3480; J3490; J7030; J7040; J7050; J7060